=== PATIENT | female | born 1970 | race African-American/Black ===

== ENCOUNTER 2022-02-21 21:43 | Inpatient (IN) | payer SELFPAY ==
[~2022-02-21] VITALS: Ht 160 cm; Wt 108.9 kg
[2022-02-21] MEDS ORDERED: HYDRALAZINE HCL 20 MG/ML VIAL IV STA (22:02)
[2022-02-21 22:07] LABS: BASOPHILS % 0.5 % (0.0-1.0); EOSINOPHILS # (AUTO) 0.1 (0.0-0.4); EOSINOPHILS % 1.3 % (0.0-6.0); HEMATOCRIT 42.1 % (34.2-44.1); LYMPHOCYTES % 23.7 % (18.0-39.1); MEAN CORPUSCULAR HEMOGLOBIN 31.6 pg (28-32); MEAN CORPUSCULAR HGB CONC 33.3 g/dL (31-35); MONOCYTES # (AUTO) 0.4 (0.2-0.8); MONOCYTES % 4.9 % (4.4-11.3); NEUTROPHILS # (AUTO) 5.8 (2.1-6.9); NEUTROPHILS % 69.1 % (38.7-80.0); PLATELET COUNT 321 x10e3/uL (140-360); RED BLOOD COUNT 4.43 x10e6/uL (3.6-5.1); RED CELL DISTRIBUTION WIDTH 12.5 % (11.7-14.4)
[2022-02-21] MEDS ORDERED: NITROGLYCERIN 2% OINT 1 GM PKT TOP STA (22:24)
[2022-02-21 22:25] LABS: ALBUMIN 3.7 g/dL (3.5-5.0); ALBUMIN/GLOBULIN RATIO 0.9 (0.8-2.0); CALCIUM 8.9 mg/dL (8.4-10.2); CREATININE, SERUM 1.08 mg/dL (0.57-1.11)
[2022-02-21 22:31] LABS: AMPHETAMINES SCREEN,URINE NEGATIVE (NEGATIVE); PHENCYCLIDINE SCREEN,URINE NEGATIVE (NEGATIVE)
[2022-02-21 22:32] LABS: CREATINE KINASE MB 1.9 ng/mL (0-5.0)
[2022-02-21 22:32] LABS: BENZODIAZEPINES SCREEN,URINE NEGATIVE (NEGATIVE)
[2022-02-21] MEDS ORDERED: SODIUM CHLORIDE FLUSH 10 ML SYR INJ PRN (22:45)
[2022-02-21] MEDS ORDERED: ASPIRIN 81 MG CHEW TAB PO ONE (22:45)
[2022-02-21] MEDS: ONDANSETRON HCL INJ 2MG/ML 2ML 2 MG/ML VIAL IV PRN (23:37)
[2022-02-21] MEDS: Morphine 4mg INJECTION 4 MG/ML INJ IV PRN (23:37)
[2022-02-22] MEDS ORDERED: DIAZEPAM INJ 5 MG/ML 2 ML IV STA (01:37)
[2022-02-22] MEDS ORDERED: ONDANSETRON HCL INJ 2MG/ML 2ML 2 MG/ML VIAL IV STA (03:30)
[2022-02-22] MEDS ORDERED: Morphine 4mg INJECTION 4 MG/ML INJ IV STA (03:30)
[2022-02-22 06:04] LABS: BASOPHILS % 0.6 % (0.0-1.0); EOSINOPHILS # (AUTO) 0.1 (0.0-0.4); EOSINOPHILS % 1.4 % (0.0-6.0); HEMATOCRIT 39.2 % (34.2-44.1); HEMOGLOBIN 12.9 g/dL (12.0-16.0); LYMPHOCYTES # (AUTO) 1.7 (1.0-3.2); LYMPHOCYTES % 24.3 % (18.0-39.1); MEAN CORPUSCULAR HEMOGLOBIN 31.9 pg (28-32); MEAN CORPUSCULAR HGB CONC 32.9 g/dL (31-35); MEAN CORPUSCULAR VOLUME 96.8 fL (81-99); MONOCYTES # (AUTO) 0.4 (0.2-0.8); MONOCYTES % 5.4 % (4.4-11.3); NEUTROPHILS # (AUTO) 4.8 (2.1-6.9); NEUTROPHILS % 67.7 % (38.7-80.0); PLATELET COUNT 275 x10e3/uL (140-360); RED BLOOD COUNT 4.05 x10e6/uL (3.6-5.1); RED CELL DISTRIBUTION WIDTH 12.5 % (11.7-14.4)
[2022-02-22 06:26] LABS: ALBUMIN 3.5 g/dL (3.5-5.0); ALBUMIN/GLOBULIN RATIO 1.1 (0.8-2.0); CALCIUM 8.8 mg/dL (8.4-10.2); CREATININE, SERUM 0.94 mg/dL (0.57-1.11)
[2022-02-22 07:03] LABS: CREATINE KINASE MB 1.5 ng/mL (0-5.0)
[2022-02-22] MEDS: HYDRALAZINE HCL 20 MG/ML VIAL IV PRN ×2 (08:13→15:28)
[2022-02-22] MEDS: ONDANSETRON HCL INJ 2MG/ML 2ML 2 MG/ML VIAL IV PRN (09:36)
[2022-02-22] MEDS: Morphine 4mg INJECTION 4 MG/ML INJ IV PRN ×3 (09:36→21:04)
[2022-02-22] MEDS ORDERED: Morphine 4mg INJECTION 4 MG/ML INJ IV PRN (11:00)
[2022-02-22 15:57] VITALS: BP 164/98
[2022-02-22 16:03] VITALS: BP 164/98
[2022-02-22 16:05] VITALS: BP 164/98
[2022-02-22 16:41] LABS: CREATINE KINASE MB 1.4 ng/mL (0-5.0)
[2022-02-22 20:00] VITALS: BP 147/79
[2022-02-22] MEDS ORDERED: ATORVASTATIN 10 MG TAB PO SCH (21:00)
[2022-02-22] MEDS: BISOPROLOL/HCTZ 5/6.25MG TAB PO SCH (21:06)
[2022-02-23 00:24] VITALS: BP 149/62
[2022-02-23 04:00] VITALS: BP 153/78
[2022-02-23] MEDS: Morphine 4mg INJECTION 4 MG/ML INJ IV PRN ×3 (05:49→14:22)
[2022-02-23 07:10] LABS: CREATINE KINASE MB 0.8 ng/mL (0-5.0)
[2022-02-23 08:00] VITALS: BP 157/92
[2022-02-23] MEDS: BISOPROLOL/HCTZ 5/6.25MG TAB PO SCH (09:00)
[2022-02-23] MEDS ORDERED: ASPIRIN 325 MG TAB PO SCH (09:00)
[2022-02-23] MEDS: ONDANSETRON HCL INJ 2MG/ML 2ML 2 MG/ML VIAL IV PRN ×2 (10:06→14:21)
[2022-02-23 12:17] VITALS: BP 155/77
[2022-02-23] MEDS ORDERED: BISOPROLOL-HCT1 EAC1 PO (16:07)
[2022-02-23] MEDS ORDERED: LIPITOR10 MG PO (16:07)
[2022-02-23 16:18] VITALS: BP 145/69
== END 2022-02-23 17:07 | disposition home or self-care (01) | DRG 917 ==
LOC: ER 21:52 → ERHOLD 22:44 → MED/SURG3 02-22 15:07 → OBSVTOIN 02-22 15:55
PROVIDERS: ADMIT Internal Medicine; ATTEND Internal Medicine
DX: T40.5X1A Poisoning by cocaine, accidental (unintentional), initial encounter (principal); I50.23 Acute on chronic systolic (congestive) heart failure; I11.0 Hypertensive heart disease with heart failure; I16.0 Hypertensive urgency; F14.188 Cocaine abuse with other cocaine-induced disorder; R07.89 Other chest pain; F17.210 Nicotine dependence, cigarettes, uncomplicated; Z20.822 Contact with and (suspected) exposure to COVID-19; Z74.09 Other reduced mobility; M79.605 Pain in left leg; M79.604 Pain in right leg; Z91.14 Patient's other noncompliance with medication regimen; R13.10 Dysphagia, unspecified
CPT/HCPCS: 36415; 71045; 80053; 80307; 81025; 82550; 82553; 83036; 83880; 84484; 85025; 93005; 93306; 93970; 94799; 99285; G0378; J0360; J2270; J2405; J3360